=== PATIENT | female | born 1995 | race Caucasian/White ===

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

== ENCOUNTER 2021-09-01 18:51 | Emergency (ER) | payer MEDICAID, SELFPAY ==
[~2021-09-01] VITALS: Ht 165.1 cm; Wt 74.8 kg
[2021-09-01 18:58] VITALS: BP 149/94
--- NOTE | 2021-09-01 19:03 | NUR ---
pt ambulated to bed 01, steady gait
--- NOTE | 2021-09-01 19:08 | NUR ---
ISAAK Ramos at bedside to exam patient.
[2021-09-01] MEDS ORDERED: KETOROLAC 30 MG/ML VIAL IM ONE (19:10)
[2021-09-01] MEDS ORDERED: PHEN177S23 PO (19:18)
[2021-09-01] MEDS ORDERED: PRED20TA5 PO (19:18)
[2021-09-01] MEDS ORDERED: NAPR-54 PO (19:18)
[2021-09-01 19:38] VITALS: BP 149/94
--- NOTE | 2021-09-01 19:38 | NUR ---
Patient discharged with v/s stable. Written and verbal after care instructions given and explained. Patient alert, oriented and verbalized understanding of instructions. Ambulatory with steady gait. All questions addressed prior to discharge. ID band removed. Patient advised to follow up with PMD. Rx of NAPROXEN, PHENOL, AND DELTASONE given. Patient educated on indication of medication including possible reaction and side effects. Provided work/school excused form. Opportunity to ask questions provided and answered.
== END 2021-09-01 19:38 | disposition home or self-care (01) ==
LOC: MED 18:51
DX: U07.1 COVID-19 (principal); J02.9 Acute pharyngitis, unspecified
CPT/HCPCS: 96372; 99283; J1885